=== PATIENT | male | born 1965 | race Caucasian/White ===

== ENCOUNTER 2019-05-24 12:33 | Observation (INO) | payer BC ==
[2019-05-24 13:05] LABS: ADD MAN DIFF? NO
[2019-05-24 13:14] LABS: ALANINE AMINOTRANSFERASE 38 IU/L (13-69); ALBUMIN 4.6 g/dl (3.3-4.9); ALBUMIN/GLOBULIN RATIO 1.43; ALKALINE PHOSPHATASE 89 IU/L (42-121); ANION GAP 15 (5-13); ASPARTATE AMINO TRANSFERASE 39 IU/L (15-46); BILIRUBIN,INDIRECT 0.9 mg/dl (0-1.1); BILIRUBIN,TOTAL 0.9 mg/dl (0.2-1.3); BLOOD UREA NITROGEN 10 mg/dl (7-20); CALCIUM 9.9 mg/dl (8.4-10.2); CARBON DIOXIDE 19 mmol/L (21-31); CHLORIDE 103 mmol/L (97-110); CREATININE 0.66 mg/dl (0.61-1.24); Estimated GFR > 60 mL/min (>60); GLUCOSE 142 mg/dl (70-220); POTASSIUM 3.8 mmol/L (3.5-5.1); SODIUM 137 mmol/L (135-144); TOTAL PROTEIN 7.8 g/dl (6.1-8.1)
[2019-05-24] MEDS: morphine 4 MG/ML VIAL IV (13:15)
[2019-05-24] MEDS: SOD CHLORIDE 0.9% 500 ML IV (13:15)
[2019-05-24 13:30] LABS: ADD UMIC YES; UR ASCORBIC ACID NEGATIVE (NEGATIVE); UR BILIRUBIN (Dip) NEGATIVE (NEGATIVE); UR BLOOD (Dip) 1+ mg/dL (NEGATIVE); UR CLARITY CLEAR (CLEAR); UR COLOR STRAW (YELLOW); UR GLUCOSE (Dip) NEGATIVE (NEGATIVE); UR KETONES (Dip) NEGATIVE (NEGATIVE); UR LEUKOCYTE ESTERASE (Dip) NEGATIVE Leu/ul (NEGATIVE); UR NITRITE (Dip) NEGATIVE (NEGATIVE); UR RBC 0 /HPF (0-5); UR SPECIFIC GRAVITY (Dip) 1.004 (1.003-1.030); UR TOTAL PROTEIN (Dip) NEGATIVE (NEGATIVE); UR UROBILINOGEN (Dip) NEGATIVE (NEGATIVE); UR WBC 1 /HPF (0-5)
[2019-05-24] MEDS: KETOROLAC 15 MG INJ IV (13:39)
[2019-05-24] MEDS: HYDROmorphONE 0.5 MG/0.5 ML SYG IV (13:39)
[2019-05-24 14:01] LABS: WHITE BLOOD COUNT 12.9 10^3/ul (4.8-10.8)
[2019-05-24 14:01] LABS: BASOPHILS % 0.3 % (0.0-2.0); EOSINOPHILS # 0.1 10^3/ul (0.0-0.5); EOSINOPHILS % 0.5 % (0.0-7.0); HEMATOCRIT 44.7 % (42.0-52.0); LYMPHOCYTES # 1.6 10^3/ul (0.8-2.9); LYMPHOCYTES % 12.5 % (15.0-51.0); MEAN PLATELET VOLUME 9.2 fl (7.4-10.4); MONOCYTE # 0.7 10^3/ul (0.3-0.9); MONOCYTES % 5.7 % (0.0-11.0); NEUTROPHIL # 10.4 10^3/ul (1.6-7.5); NEUTROPHILS % 80.5 % (39.0-77.0); PLATELET COUNT 203 10^3/UL (140-415); POSITIVE DIFF @See below; RED BLOOD COUNT 5.08 10^6/ul (4.70-6.10)
[2019-05-24 14:03] LABS: HEMOGLOBIN 16.7 g/dl (14.0-18.0); MEAN CORPUSCULAR HGB CONC 37.4 g/dl (32.0-37.0); MEAN CORPUSCULAR VOLUME 88.3 fl (82.0-101.0); RED CELL DISTRIBUTION WIDTH 11.5 % (11.5-14.5)
[2019-05-24] MEDS: NA PHOSPHATE/BIPHOS 133 ML ENEMA PR (15:24)
[2019-05-24] MEDS: LACTULOSE 30ML CUP PO (17:36)
[2019-05-24] MEDS ORDERED: hydrALAzine 20 MG INJ IV (19:00)
[2019-05-24] MEDS ORDERED: LORAZEPAM 2 MG INJ IV (19:00)
[2019-05-24] MEDS ORDERED: MAGNESIUM HYDROXIDE 30ML CUP PO (19:00)
[2019-05-24] MEDS ORDERED: DOCUSATE SODIUM 100 MG CAP PO (19:00)
[2019-05-24] MEDS ORDERED: ONDANSETRON 4 MG INJ IV ×2 (19:00)
[2019-05-24] MEDS ORDERED: ACETAMINOPHEN 325 MG TAB PO (19:00)
[2019-05-24] MEDS ORDERED: ALBUTEROL/IPRATROPIUM (NEB) 3 ML AMP HHN (19:00)
[2019-05-24] MEDS ORDERED: NITROGLYCERIN (SL) 0.4 MG TAB SL (19:00)
[2019-05-24] MEDS ORDERED: NACL 0.9% 3 ML SYG IV (19:00)
[2019-05-24] MEDS ORDERED: morphine 2 MG INJ IV (19:00)
[2019-05-24 19:56] LABS: FREE T4 (FREE THYROXINE) 1.26 ng/dl (0.64-1.79)
[2019-05-24 21:04] LABS: INR 0.95; PARTIAL THROMBOPLASTIN TIME 30.3 Sec (23.0-35.0); PROTIME 12.8 Sec (11.9-14.9)
[2019-05-24] MEDS: HYDROCODONE/APAP (5/325) TAB PO (21:25)
[2019-05-24] MEDS: FAMOTIDINE 20 MG INJ IV (21:25)
[2019-05-24] MEDS: SOD CHLORIDE 0.45% 1,000 ML IV (21:31)
[2019-05-25] MEDS: ACETAMINOPHEN 325 MG TAB PO (00:09)
[2019-05-25] MEDS ORDERED: PANTOPRAZOLE 40 MG INJ IV (06:00)
[2019-05-25 06:15] LABS: ADD MAN DIFF? NO
[2019-05-25 06:20] LABS: BASOPHIL # 0.1 10^3/ul (0.0-0.1); BASOPHILS % 0.6 % (0.0-2.0); EOSINOPHILS # 0.2 10^3/ul (0.0-0.5); HEMATOCRIT 43.5 % (42.0-52.0); HEMOGLOBIN 15.6 g/dl (14.0-18.0); LYMPHOCYTES # 1.7 10^3/ul (0.8-2.9); LYMPHOCYTES % 20.5 % (15.0-51.0); MEAN CORPUSCULAR HEMOGLOBIN 32.8 pg (29.0-33.0); MEAN CORPUSCULAR HGB CONC 35.9 g/dl (32.0-37.0); MEAN CORPUSCULAR VOLUME 91.6 fl (82.0-101.0); MEAN PLATELET VOLUME 9.2 fl (7.4-10.4); MONOCYTE # 0.6 10^3/ul (0.3-0.9); MONOCYTES % 7.7 % (0.0-11.0); NEUTROPHIL # 5.5 10^3/ul (1.6-7.5); NEUTROPHILS % 68.8 % (39.0-77.0); PLATELET COUNT 170 10^3/UL (140-415); RED BLOOD COUNT 4.75 10^6/ul (4.70-6.10); RED CELL DISTRIBUTION WIDTH 11.9 % (11.5-14.5)
[2019-05-25 07:00] LABS: HEMOGLOBIN A1C 5.5 % (0-5.9)
[2019-05-25 07:00] LABS: ANION GAP 9 (5-13); BLOOD UREA NITROGEN 10 mg/dl (7-20); CALCIUM 9.1 mg/dl (8.4-10.2); CARBON DIOXIDE 29 mmol/L (21-31); CHLORIDE 104 mmol/L (97-110); CREATININE 0.75 mg/dl (0.61-1.24); Estimated GFR > 60 mL/min (>60); GLUCOSE 133 mg/dl (70-220); MAGNESIUM 2.3 mg/dl (1.7-2.5); PHOSPHORUS 3.4 mg/dl (2.5-4.9); POTASSIUM 3.7 mmol/L (3.5-5.1); SODIUM 142 mmol/L (135-144)
[2019-05-25 07:06] LABS: CHOLESTEROL 211 mg/dl (100-200)
[2019-05-25 07:06] LABS: CHOL/HDL RATIO 8.1 RATIO; HDL CHOLESTEROL 26 mg/dl (28-71)
[2019-05-25 07:15] LABS: LDL CHOLESTEROL,CALCULATED 10 mg/dl; TRIGLYCERIDES 874 mg/dl (0-149)
[2019-05-25] MEDS: FAMOTIDINE 20 MG INJ IV (08:05)
[2019-05-25] MEDS: SOD CHLORIDE 0.45% 1,000 ML IV ×2 (08:06→11:08)
[2019-05-25] MEDS: POLYETHYLENE GLYCOL 17 GM PACKET PO (11:08)
== END 2019-05-25 17:30 | disposition home or self-care (01) ==
LOC: E/R 12:33 → PP2 21:03
DX: K59.00 Constipation, unspecified (principal); K62.89 Other specified diseases of anus and rectum; E78.5 Hyperlipidemia, unspecified; I10 Essential (primary) hypertension; I25.10 Atherosclerotic heart disease of native coronary artery without angina pectoris; I25.2 Old myocardial infarction; Z87.891 Personal history of nicotine dependence
CPT/HCPCS: 36415; 74176; 80048; 80053; 80061; 81001; 83036; 83735; 84100; 84439; 84443; 85025; 85610; 85730; 96374; 96375; 97161; 99285-25; G0378